=== PATIENT | female | born 1980 | race Caucasian/White ===

== ENCOUNTER 2024-06-22 14:40 | Outpatient (AMB) | payer BC, SELFPAY ==
[2024-06-22 14:41] VITALS: BP 112/74; PULSE 78; O2SAT 96; BMI 30.2
--- NOTE | 2024-06-22 14:41 | A.OFFVIS_ITS ---
Vital Signs 3 06/22/24 14:41 Height 5 ft 9 in Weight 204 lb 9.423 oz BMI 30.2 BP 112/74 Blood Pressure Location Lt brachial Position Sitting Pulse 78 Pulse Source Pulse Oximeter Pulse Oximetry (%) 96 Oxygen Delivery Method Room Air Intake Visit Reasons: Hyperthyroidism, thyroid nodules Intake Note: New patient present today for Hyperthyroidism and thyroid nodules. 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 Labs from November 2023 showed TSH was low at 0.25, normal free T4 of 1.22. Labs repeated 01/06/2024 again showed low TSH of 0.23. 01/04/2024: Ultrasound of the thyroid, I do not have the images available to me but the report shows a right mid lobe 2 cm solid, hypoechoic nodule TR 4 category that met criteria for FNA, a right inferior 1.2 cm solid, hypoechoic TR 4 category nodule and another right inferior 1 cm solid hypoechoic TR 4 category nodule. 02/01/2024: Status post FNA of the right mid lobe 2 cm nodule, I do not have the cytology results available to me but per patient this was benign. Preceding viral illness: none Osteoporosis/fracture: none CAD: none Contrast exposure: none Patient currently denies heat or cold intolerance, diarrhea or constipation, hair loss, palpitation, anxiety, weight changes, mood changes, , changes in appearance of eyes or vision changes, tremors, increased diaphoresis or dry skin. ? Reports low energy reports weight gain 25 lbs in 3 years walks 4 times 45 mins Patient denies any difficulty swallowing, pain on swallowing or voice changes or difficulty breathing. Has some anterior neck fullness on laying supine. Patient denies any history of childhood neck radiation. Denies having ever used lithium, amiodarone or biotin supplements. Patient denies any family history of thyroid cancer . Paternal grandmother: thyroid disease director of [employer] at [employer] No smoking Alcohol: 1 every other week No drug use Past medical history None Past surgical Perineal abscess incision and drainage Physical exam General: sitting comfortably in no acute distress HEENT: normocephalic/atraumatic, EOM intact, moist oral mucosa Neck: supple, prominent enlarged thyroid, palpable 1 cm right-sided nodule Cardiac: normal heart sounds Pulm: normal breath sounds B/L, no added breath sounds Abd: not distended, no tenderness Extremities: no edema, no signs of myxedema, mild right hand tremor noted initially which disappeared Neuro: AAO x3, Speech: normal, no facial droop, moving all 4 extremities Skin: no rash PFSH Medical History (Updated 06/22/24 @ 15:03 by Cortney Green MD) Multinodular goiter Subclinical hyperthyroidism Family History (Updated 06/22/24 @ 14:46 by CLIFTON Burgos) Mother Cancer Father Heart disease Diabetes Social History Alcohol intake: current Alcohol intake frequency: holidays/special occasions only Patient Tobacco Use Status: Never used Tobacco Assessment & Plan Assessment & Plan (1) Subclinical hyperthyroidism: Code(s): E05.90 - Thyrotoxicosis, unspecified without thyrotoxic crisis or storm Category: Medical Plan: 43-year-old female coming in today for initial evaluation of subclinical hyperthyroidism and multiple thyroid nodules. Labs from November and December 2023 showed TSH was low in the range of 0.23- 0.25 with normal free T4. She does not have any symptoms of hyperthyroidism, no preceding viral illness, no contrast exposure. Vitals are normal. She also had an ultrasound of the thyroid in December 2023 which showed multiple right-sided thyroid nodules with a right mid lobe 2 cm TR 4 category nodule that was biopsied in January 2024 at [facility], I do not have the cytology results but per patient results were benign. We will obtain these records. Given TSH is not less than 0.1, her age, no history of CAD/arrhythmias, no history of osteoporosis or fragility fracture, and no overt symptoms, she does not need treatment. We will continue to monitor her thyroid function. At this point it has been about 6 months since the last time it was checked, we will repeat extended thyroid panel today, we will also check for antibodies. Differentials could include underlying Graves disease/autoimmune thyroid disease, toxic adenoma or toxic multinodular goiter. If it comes down to her needing a repeat thyroid biopsy due to growth in the size of any of her nodules, I would obtain a thyroid uptake and scan to see if these are hot nodules as those usually do not harbor thyroid cancer unless they appear to suspicious, and biopsy could potentially be deferred. She does not have any compressive symptoms. No hypo or hyperthyroid symptoms. Plan: -ordered TSH, free T4, total T3, TSI, TSH receptor and TPO antibodies -ordered ultrasound of the thyroid to be done in 1 year from the last 1 in December 2024 -follow up in January 2025 to discuss ultrasound results -obtain thyroid FNA records from [facility] (2) Multinodular goiter: Code(s): E04.2 - Nontoxic multinodular goiter Category: Medical Plan: See above Plan I spent 45 minutes in reviewing the record, seeing the patient and documenting in the medical record. Orders: Orders 2 Thyroid Stimulating Hormone Today E05.90 - Thyrotoxicosis, unspecified without thyrotoxic crisis or storm Free T4 (Free Thyroxine) Today E05.90 - Thyrotoxicosis, unspecified without thyrotoxic crisis or storm Triiodothyronine T3 Total Today E05.90 - Thyrotoxicosis, unspecified without thyrotoxic crisis or storm Thyroid Stimulating Immunoglob Today E05.90 - Thyrotoxicosis, unspecified without thyrotoxic crisis or storm US thyroid 12/11/24 E04.2 - Nontoxic multinodular goiter Thyrotropin Receptor Antibody Today E05.90 - Thyrotoxicosis, unspecified without thyrotoxic crisis or storm Thyroid Peroxidase Antibodies Today E05.90 - Thyrotoxicosis, unspecified without thyrotoxic crisis or storm Patient Instructions: Do blood work today Do US of thyroid in December 2024 and follow up in January 2025 to discuss results Coding Level of Care Code New Pt Level 4 (01583) Diagnoses Subclinical hyperthyroidism E05.90 Multinodular goiter E04.2 Time Spent (min) 45
--- OUTSIDE RECORDS SUMMARY | 2024-06-22 17:36 | XMS_ITS ---
Author Organization [facility] Address [address] [place] [address] Care Team Providers Care Plug Machine Operator Name Role Phone THU GRAYSON Primary Care Provider VIOLETA Arrington Unavailable [phone] REASON FOR VISIT wt mn Encounters Encounter Location Date Provider Diagnosis [facility] [address] [place] [address] 06/02/2024 VIOLETA KENYON PLAN OF TREATMENT Next Appt Details Provider Name:VIOLETA Gordon, 06/23/2024 08:00:00 AM, [address] [facility] [address] [place], [address], Progress Notes * Les ALVAREZ:1980 (43 yo F)Acc No.[id number]:06/02/2024 Patient:??John ALVAREZa :1980?Age:43 Y?Sex:Fe male Address:[address] [place] [address] [place] [id number] * true * Date:??
--- OUTSIDE RECORDS SUMMARY | 2024-06-22 17:36 | XMS_ITS | Patient Health Record ---
Author Organization [facility] Address [address] [place] [address] Care Team Providers Care Curb Setter Name Role Phone THU GRAYSON Primary Care Provider VIOLETA Arrington Unavailable [phone] ALLERGIES No Known Allergies REASON FOR REFERRAL Diagnosis 1 Other general sympto ms and signs (R68.89) Referred Organization [facility] [address] Referred Provider JB TURNER Referred Address [address] [facility],[address] ,[place], [place],[address], Referred Provider Specialty Weight Manag ement Referral Priority Routine Encounters Encounter Location Date Provider Diagnosis [facility] [address] [place] [address] 06/02/2024 VIOLETA KENYON PLAN OF TREATMENT Next Appt Details Provider Name:VIOLETA Gordon, 06/23/2024 08:00:00 AM, [address] [facility], [address], [place], [address], Insurance Providers Payer Name Payer Address Payer Phone Subscriber Number Group Number Insured Name Patient Relationship to Insured Coverage Start Date Coverage End Date [facility] [address] [place] [address] [id number] ANTONIO Tim Self - patient is the insured MEDICAL (GENERAL) HISTORY Medical History History ICD Code weight gain/loss
== END 2024-06-22 15:09 | disposition home or self-care (01) ==
LOC: HO.ENCR 14:41
PROVIDERS: PCP Internal Medicine; Visit Provider Student in an Organized Health Care Education/Training Program
DX: E05.90 Thyrotoxicosis, unspecified without thyrotoxic crisis or storm (principal); E04.2 Nontoxic multinodular goiter
CPT/HCPCS: 99204

== ENCOUNTER 2024-06-22 14:40 | Outpatient (REF) | payer BC, SELFPAY ==
[2024-06-22 16:42] LABS: Free T4 (Free Thyroxine) 1.03 ng/dL (0.71-1.85); Thyroid Stimulating Hormone 0.22 uIU/mL (0.32-4.0)
[2024-06-23 04:33] LABS: Triiodothyronine T3 Total 125 ng/dL (76-181)
[2024-06-26 19:07] LABS: Thyroid Peroxidase Antibodies 1 IU/mL (<9)
[2024-06-26 20:22] LABS: Thyrotropin Receptor Antibody <1.00 IU/L (<=2.00)
[2024-06-27 16:13] LABS: Thyroid Stimulating Immunoglob <89 % baseline (<140)
== END 2024-06-22 14:41 | disposition home or self-care (01) ==
LOC: HO.LAB 14:40
PROVIDERS: PCP Internal Medicine; Visit Provider Student in an Organized Health Care Education/Training Program
DX: E05.90 Thyrotoxicosis, unspecified without thyrotoxic crisis or storm (principal)
CPT/HCPCS: 36415; 83520; 84439; 84443; 84445; 84480; 86376

== ENCOUNTER 2024-12-27 14:55 | Outpatient (REF) | payer BC, SELFPAY ==
--- NOTE | ~2024-12-27 | US_ITS ---
EXAMINATION: US THYROID CLINICAL INFORMATION: Goiter COMPARISON: None available. TECHNIQUE: Linear transducer grayscale and color Doppler examination with attention to the region of the thyroid. FINDINGS: SIZE: Measurements of the thyroid lobes and nodules are given in sagittal, anteroposterior and transverse dimensions respectively. Right Thyroid Lobe: 5.9 x 2.3 x 2.5 cm, volume 17.8 mL. Parenchyma: The gland echotexture is heterogeneous. Thyroid vascularity is normal. Left Thyroid Lobe: 5.1 x 1.9 x 1.7 cm, volume 8.7 mL. Parenchyma: The gland echotexture is heterogeneous. Thyroid vascularity is normal. Isthmus: 0.3 cm in maximum AP dimension. Estimated total number of nodules greater than or equal to 1 cm: 3. Insurance Advisor nodules are described as follows: 1. Location: Midportion right lobe. Size: 1.8 x 0.8 x 1.7 cm, volume 1.3 mL. Nodule characteristics: Composition: Solid (2). Echogenicity: Isoechoic (1). Shape: Not taller than wide (0). Margins: Smooth (0). Echogenic Foci: None (0). ACR TI-RADS total points: 3 ACR TI-RADS category: 3 2. Location: Lower pole right lobe. Size: 1.3 x 0.8 x 1.2 cm, volume 0.68 mL. Nodule characteristics: Composition: Solid/almost completely solid (2). Echogenicity: Undetermined 1. Shape: Not taller than wide (0). Margins: Smooth (0). Echogenic Foci: None (0). ACR TI-RADS total points: 3 ACR TI-RADS category: 3 3. Location: Lower pole right lobe. Size: 1.0 x 0.8 x 0.9 cm, volume 0.36 mL. Nodule characteristics: Composition: Solid (2). Echogenicity: Isoechoic (1). Shape: Not taller than wide (0). Margins: Smooth (0). Echogenic Foci: None (0). ACR TI-RADS total points: 3 ACR TI-RADS category: 3 4. Location: Upper pole, left lobe. Size: 0.4 x 0.2 x 0.2 cm, volume 0.01 mL. Nodule characteristics: Composition: Solid (2). Echogenicity: Isoechoic (1). Shape: Not taller than wide (0). Margins: Smooth (0). Echogenic Foci: None (0). ACR TI-RADS total points: 3 ACR TI-RADS category: 3 NODES: No lymphadenopathy is seen in the tissue surrounding the thyroid gland. US/US thyroid IMPRESSION: ACR TI-RADS category: 3 ACR TI-RADS RECOMMENDATION REFERENCE: Ultrasound-guided fine-needle aspiration, followup ultrasound, no further follow up. * TR1 (0 point) and TR2 (2 points): No FNA or follow up. * TR3 (3 points): FNA if more than or equal to 2.5 cm in maximum dimension, followup ultrasound in 1, 3 and 5 years if 1.5 to 2.4 cm in maximum dimension. * TR4 (4-6 points): FNA if more than or equal to 1.5 cm in maximum dimension, followup ultrasound in 1, 2, 3 and 5 years if 1 to 1.4 cm in maximum dimension. * TR5 (more than or equal to 7 points): FNA if more than or equal to 1 cm in maximum dimension, followup ultrasound every year for 5 years if 0.5 to 0.9 cm in maximum dimension. * TR3, TR4 or TR5 nodules that are below the size threshold for followup receive no follow up. Electronically signed by: Wilner Cunningham MD 12/27/2024 04:03 PM EDT
--- OUTSIDE RECORDS SUMMARY | 2024-12-27 21:09 | XMS_ITS | Patient Health Record ---
Author Organization [facility] Address [address] [place] [address] Care Team Providers Care Food Mixer Name Role Phone Cesario Adamson MD Primary Care Provider Un available Sofia Josue Unavailable [phone] Reason For Referral No Information Problems Problem Type SNOMED Code ICD Code Onset Dates Problem Status W/U Status Risk Notes Problem Onychomycosis (790854986) Onychomycosis (110.1) Active confirmed Problem Pain in limb (72024694) Pain in Limb (729.5) Active confirmed Problem Hallux valgus (213030165) Hallux Valgus (735.0) Active confirmed Problem Hammer toe (294760507) Hammer toe (735.4) Active confirmed Plan Of Treatment No Information Insurance Providers Payer Name Payer Address Payer Phone Subscriber Number Group Number Insured Name Patient Relationship to Insured Coverage Start Date Coverage End Date [facility] [address] [place] [address] [id number] Tim Vigil Self - patient is the insured
--- OUTSIDE RECORDS SUMMARY | 2024-12-27 21:09 | XMS_ITS | Patient Health Record ---
Author Organization [facility] [address] Address [address] [place] [address] Care Team Providers Care Space Technologist Name Role Phone THU GRAYSON Primary Care Provider VIOLETA Arrington Unavailable [phone] Allergies No Known Allergies Reason For Referral Diagnosis 1 Other general sympto ms and signs (R68.89) Referred Organization [facility] [address] Referred Provider JB TURNER Referred Address [address] [facility] [address] ,[place], [place],[address], Referred Provider Specialty Weight Manag ement Referral Priority Routine Medications Medication SIG (Take, Route, Fr equency, Duration) Notes Start Date End Date Status Zepbound 5 MG/0.5ML Inject 5mg Subcutane ous once weekly; Duration: 30 days Active Mirena (52 MG) Activ e Problems Problem Type SNOMED Code ICD Code Onset Dates Problem Status W/U Status Risk Notes Problem Overweight (659315289) Overweight (E66.3) Active confirmed Problem Body mass index 25-29 - overweight (594197878) BMI 28.0-28.9,adult (Z68.28) Active confirmed Problem Thyroid dysfunction (028168821) Thyroid dysfunction (E07.9) Active confirmed Vital Signs Heart Rate 81 /min 11/24/2024 Oximetry 98 % 11/24/2024 Blood pressure diastolic 84 mm Hg 11/24/2024 Height 68 in 11/24/2024 Blood pressure systolic 128 mm Hg 11/24/2024 Weight 155.4 lbs 11/24/2024 BMI 23.63 kg/m2 11/24/2024 Encounters Encounter Location Date Provider Diagnosis [facility] [address] [facility] [address] [place] [address] 06/23/2024 VIOLETA KENYON Obesity (BMI 30.0-34.9) E66.811 ; BMI 30.0-30.9,adult Z68.30 ; Thyroid dysfunction E07.9 and Nutritional counseling Z71.[address] [facility] [address] [facility] [address] [place] [address] 07/20/2024 VIOLETA JANSEN Overweight E66.3 ; B ME 28.0-28.9,adult Z68.28 ; Thyroid dysfunction E07.9 ; Nutritional counseling Z71.3 and Encounter for examination of blood pressure without abnormal findings Z01.30 [facility] [address] [facility] [address] [place] [address] 09/06/2024 VIOLETA JANSEN Overweight E66.3 ; B ME 25.0-25.9,adult Z68.25 ; Thyroid dysfunction E07.9 ; Nutritional counseling Z71.3 and Encounter for examination of blood pressure without abnormal findings Z01.30 [facility] [address] [address] 10/11/2024 VIOLETA JANSEN Overweight E66.3 ; B ME 24.0-24.9, adult Z68.24 ; Thyroid dysfunction E07.9 ; Nutritional counseling Z71.3 and Encounter for examination of blood pressure without abnormal findings Z01.30 [facility] [address] [facility] [address] [place] [address] 11/24/2024 VIOLETA JANSEN Overweight E66.3 ; B ME 23.0-23.9, adult Z68.23 ; Thyroid dysfunction E07.9 ; Nutritional counseling Z71.3 and Encounter for examination of blood pressure without abnormal findings Z01.[address] [facility] [address] [place] [address] 06/02/2024 VIOLETA JANSEN [facility] [address] [facility] [address] [place] [address] 06/23/2024 VIOLETA JANSEN [facility] [address] [facility] [address] [place] [address] 07/04/2024 VIOLETA JANSEN [facility] [address] [facility] [address] [place] [address] 07/04/2024 VIOLETA JANSEN [facility] [address] [facility] [address] [place] [address] 07/12/2024 VIOLETA KENYON [facility] [address] [place] [address] 07/18/2024 VIOLETA KENYON Assessments Encounter Date Diagnosis (ICD Code) Assessment Notes Treatment Notes Treatment Clinical Notes Section Notes 10/11/2024 Overweight (ICD-10 - E66.3) Tim is a 44-year-old female with a PMH of thyroid dysfunction that presents for weight management follow up. Reviewed [facility] holistic and medical approach to weight loss with emphasis on lifestyle modification. 10/11/2024: Weight: 162.7, BMI: 24.7 (-4lbs). SECA reviewed, reveals primarily fat loss. Patient congratulated on continued progress. She is encouraged to continue making health-conscious diet choices and prioritizing protein intake. Discussed importance of maintaining active lifestyle and hydrating adequately. She will continue Zepbound 5 mg SC every 10 days and follow-up in 6 weeks. 09/06/2024: Weight: 166.9, BMI: 25.4. (-21lbs) 07/20/2024: Weight: 187, BMI: 28.5. (-16lbs) 06/23/2024: Weight: 203.3, BMI: 30.9. All questions answered to the patient's satisfaction. Patient demonstrates understanding of diagnosis and treatments discussed. Follow-up in 4 weeks, sooner should any questions/concerns arise. Case discussed with collaborating physician Ssui Green who has reviewed the assessment/plan. Chart, medications, labs, and vital signs reviewed. Dictation completed with the use of Q-Bot voice recognition software, prone to medical misidentifications and grammatical errors. All errors are unintentional. Although the practitioner does try to identify and correct errors, some may be present. Please do not hesitate to contact the practitioner for clarification. Total time was 30 minutes spent with >50% on coordination of care and patient education. 10/11/2024 BMI 24.0-24.9, adult (ICD-10 - Z68.24) Tim is a 44-year-old female with a PMH of thyroid dysfunction that presents for weight management follow up. Reviewed [facility] holistic and medical approach to weight loss with emphasis on lifestyle modification. 10/11/2024: Weight: 162.7, BMI: 24.7 (-4lbs). SECA reviewed, reveals primarily fat loss. Patient congratulated on continued progress. She is encouraged to continue making health-conscious diet choices and prioritizing protein intake. Discussed importance of maintaining active lifestyle and hydrating adequately. She will continue Zepbound 5 mg SC every 10 days and follow-up in 6 weeks. 09/06/2024: Weight: 166.9, BMI: 25.4. (-21lbs) 07/20/2024: Weight: 187, BMI: 28.5. (-16lbs) 06/23/2024: Weight: 203.3, BMI: 30.9. All questions answered to the patient's satisfaction. Patient demonstrates understanding of diagnosis and treatments discussed. Follow-up in 4 weeks, sooner should any questions/concerns arise. Case discussed with collaborating physician Susi Green who has reviewed the assessment/plan. Chart, medications, labs, and vital signs reviewed. Dictation completed with the use of Q-Bot voice recognition software, prone to medical misidentifications and grammatical errors. All errors are unintentional. Although the practitioner does try to identify and correct errors, some may be present. Please do not hesitate to contact the practitioner for clarification. Total time was 30 minutes spent with >50% on coordination of care and patient education. 11/24/2024 Overweight (ICD-10 - E66.3) Tim is a 44-year-old female with a PMH of thyroid dysfunction that presents for weight management follow up. Reviewed [facility] holistic and medical approach to weight loss with emphasis on lifestyle modification. 11/24/2024: Weight: 155.4, BMI: 23.6 (-7lbs) SECA reviewed, reveals primarily fat loss with minimal muscle mass loss. Patient encouraged to continue making health-conscious diet choices and prioritizing protein intake. Discussed importance of active lifestyle and adequate hydration. Plan to continue Zepbound 5 mg SC every 10 days. Consider transition to maintenance dosing at time of next follow-up. 10/11/2024: Weight: 162.7, BMI: 24.7 (-4lbs). 09/06/2024: Weight: 166.9, BMI: 25.4. (-21lbs) 07/20/2024: Weight: 187, BMI: 28.5. (-16lbs) 06/23/2024: Weight: 203.3, BMI: 30.9. All questions answered to the patient's satisfaction. Patient demonstrates understanding of diagnosis and treatments discussed. Follow-up in 4 weeks, sooner should any questions/concerns arise. Case discussed with collaborating physician Susi Green who has reviewed the assessment/plan. Chart, medications, labs, and vital signs reviewed. Dictation completed with the use of Q-Bot voice recognition software, prone to medical misidentifications and grammatical errors. All errors are unintentional. Although the practitioner does try to identify and correct errors, some may be present. Please do not hesitate to contact the practitioner for clarification. Total time was 30 minutes spent with >50% on coordination of care and patient education. 11/24/2024 BMI 23.0-23.9, adult (ICD-10 - Z68.23) Tim is a 44-year-old female with a PMH of thyroid dysfunction that presents for weight management follow up. Reviewed [facility] holistic and medical approach to weight loss with emphasis on lifestyle modification. 11/24/2024: Weight: 155.4, BMI: 23.6 (-7lbs) SECA reviewed, reveals primarily fat loss with minimal muscle mass loss. Patient encouraged to continue making health-conscious diet choices and prioritizing protein intake. Discussed importance of active lifestyle and adequate hydration. Plan to continue Zepbound 5 mg SC every 10 days. Consider transition to maintenance dosing at time of next follow-up. 10/11/2024: Weight: 162.7, BMI: 24.7 (-4lbs). 09/06/2024: Weight: 166.9, BMI: 25.4. (-21lbs) 07/20/2024: Weight: 187, BMI: 28.5. (-16lbs) 06/23/2024: Weight: 203.3, BMI: 30.9. All questions answered to the patient's satisfaction. Patient demonstrates understanding of diagnosis and treatments discussed. Follow-up in 4 weeks, sooner should any questions/concerns arise. Case discussed with collaborating physician Susi Green who has reviewed the assessment/plan. Chart, medications, labs, and vital signs reviewed. Dictation completed with the use of Q-Bot voice recognition software, prone to medical misidentifications and grammatical errors. All errors are unintentional. Although the practitioner does try to identify and correct errors, some may be present. Please do not hesitate to contact the practitioner for clarification. Total time was 30 minutes spent with >50% on coordination of care and patient education. 09/06/2024 Overweight (ICD-10 - E66.3) Tim is a 44-year-old female with a PMH of thyroid dysfunction that presents for weight management follow up. Reviewed [facility] holistic and medical approach to weight loss with emphasis on lifestyle modification. 09/06/2024: Weight: 166.9, BMI: 25.4.(-21lbs) SECA reviewed, reveals 18 pounds of fat loss and 2 pounds of muscle mass loss. Patient averaging 3.4 pounds of weight loss/week. Discussed importance of continued prioritization of protein intake, adequate hydration, and regular physical activity. Patient will continue Zepbound 5 mg every 10-14 days and follow-up in 1 month. 07/20/2024: Weight: 187, BMI: 28.5. (-16lbs) 06/23/2024: Weight: 203.3, BMI: 30.9. All questions answered to the patient's satisfaction. Patient demonstrates understanding of diagnosis and treatments discussed. Follow-up in 4 weeks, sooner should any questions/concerns arise. Case discussed with collaborating physician Susi Green who has reviewed the assessment/plan. Chart, medications, labs, and vital signs reviewed. Dictation completed with the use of Q-Bot voice recognition software, prone to medical misidentifications and grammatical errors. All errors are unintentional. Although the practitioner does try to identify and correct errors, some may be present. Please do not hesitate to contact the practitioner for clarification. Total time was 30 minutes spent with >50% on coordination of care and patient education. 09/06/2024 BMI 25.0-25.9,adul t (ICD-10 - Z68.25) Tim is a 44-year-old female with a PMH of thyroid dysfunction that presents for weight management follow up. Reviewed [facility] holistic and medical approach to weight loss with emphasis on lifestyle modification. 09/06/2024: Weight: 166.9, BMI: 25.4.(-21lbs) SECA reviewed, reveals 18 pounds of fat loss and 2 pounds of muscle mass loss. Patient averaging 3.4 pounds of weight loss/week. Discussed importance of continued prioritization of protein intake, adequate hydration, and regular physical activity. Patient will continue Zepbound 5 mg every 10-14 days and follow-up in 1 month. 07/20/2024: Weight: 187, BMI: 28.5. (-16lbs) 06/23/2024: Weight: 203.3, BMI: 30.9. All questions answered to the patient's satisfaction. Patient demonstrates understanding of diagnosis and treatments discussed. Follow-up in 4 weeks, sooner should any questions/concerns arise. Case discussed with collaborating physician Susi Green who has reviewed the assessment/plan. Chart, medications, labs, and vital signs reviewed. Dictation completed with the use of Q-Bot voice recognition software, prone to medical misidentifications and grammatical errors. All errors are unintentional. Although the practitioner does try to identify and correct errors, some may be present. Please do not hesitate to contact the practitioner for clarification. Total time was 30 minutes spent with >50% on coordination of care and patient education. 06/23/2024 BMI 30.0-30.9,adul t (ICD-10 - Z68.30) Tim is a 43-year-old female with a PMH of thyroid dysfunction that presents for weight management consult. Patient was reassured and welcomed to the practice. Discussed [facility] holistic and medical approach to weight loss with emphasis on lifestyle modification. Patient is educated that a healthy lifestyle aids in combating obesity as well as reducing the risk of developing obesity-related medical complications including but not limited to diabetes and cardiovascular disease. Detailed education provided about taking steps to initiate sustainable lifestyle changes including incorporating regular physical activity, making healthy diet choices, and prioritizing mental health. Information provided about literature including The Food Rules by Rg Gleason and Eat Fat Get Lean by Dr Santhosh Luo. Handouts including lifestyle checklist, protein content of food, low calorie snacks, and cholesterol information sheet provided. Diagnostic testing/ SECA scale offered. Discussed the importance of regular SECA scale measurements to ensure healthy weight loss. 06/23/2024: Weight: 203.3, BMI: 30.9. Reviewed SECA/goals for implementing sustainable lifestyle changes. Patient is encouraged to increase physical activity, goal 8-10k steps/day. Also discussed the importance of strength training with proper safety/body mechanics for maintenance of muscle mass/bone health. Patient encouraged to drink 60-80oz water/day. Reviewed nutrition, recommending food diary x 1 week to ensure adequate caloric/protein intake. Goal of 80-100g protein/day. Reviewed risks, benefits, and side effects of weight management medications including phentermine, Topamax, Contrave, metformin, and GLP-1 agonist. Patient interested in GLP-1/GIP agonist Zepbound. Denies personal/family history of medullary thyroid cancer/M EN syndrome. Rx for Zepbound 2.5 mg SC weekly sent to pharmacy. Reviewed proper use/administration, and expectations for PA process/insurance coverage. After consultation and careful review of medical history, this patient would benefit from Zepbound based off of the following criteria met: Patient is over the age of 18 with a BMI of 30. Patient has trialed other methods of weight loss including improving diet and exercise without success. This medication is prescribed by or in consultation with a board-certified obesity and weight management physician (Dr. Bk Green or Dr. Alvarado Green). All questions answered to the patient's satisfaction. Patient demonstrates understanding of diagnosis and treatments discussed. Follow-up in 4 weeks, sooner should any questions/concerns arise. Case discussed with collaborating physician Susi Green who has reviewed the assessment/plan. Chart, medications, labs, and vital signs reviewed. Dictation completed with the use of Q-Bot voice recognition software, prone to medical misidentifications and grammatical errors. All errors are unintentional. Although the practitioner does try to identify and correct errors, some may be present. Please do not hesitate to contact the practitioner for clarification. Total time was 60 minutes spent with >50% on coordination of care and patient education. 06/23/2024 Obesity (BMI 30.0-34.9) (ICD-10 - E66.811) Tim is a 43-year-old female with a PMH of thyroid dysfunction that presents for weight management consult. Patient was reassured and welcomed to the practice. Discussed [facility] holistic and medical approach to weight loss with emphasis on lifestyle modification. Patient is educated that a healthy lifestyle aids in combating obesity as well as reducing the risk of developing obesity-related medical complications including but not limited to diabetes and cardiovascular disease. Detailed education provided about taking steps to initiate sustainable lifestyle changes including incorporating regular physical activity, making healthy diet choices, and prioritizing mental health. Information provided about literature including The Food Rules by Rg Gleason and Eat Fat Get Lean by Dr Santhosh Luo. Handouts including lifestyle checklist, protein content of food, low calorie snacks, and cholesterol information sheet provided. Diagnostic testing/ SECA scale offered. Discussed the importance of regular SECA scale measurements to ensure healthy weight loss. 06/23/2024: Weight: 203.3, BMI: 30.9. Reviewed SECA/goals for implementing sustainable lifestyle changes. Patient is encouraged to increase physical activity, goal 8-10k steps/day. Also discussed the importance of strength training with proper safety/body mechanics for maintenance of muscle mass/bone health. Patient encouraged to drink 60-80oz water/day. Reviewed nutrition, recommending food diary x 1 week to ensure adequate caloric/protein intake. Goal of 80-100g protein/day. Reviewed risks, benefits, and side effects of weight management medications including phentermine, Topamax, Contrave, metformin, and GLP-1 agonist. Patient interested in GLP-1/GIP agonist Zepbound. Denies personal/family history of medullary thyroid cancer/M EN syndrome. Rx for Zepbound 2.5 mg SC weekly sent to pharmacy. Reviewed proper use/administration, and expectations for PA process/insurance coverage. After consultation and careful review of medical history, this patient would benefit from Zepbound based off of the following criteria met: Patient is over the age of 20 with a BMI of 30. Patient has trialed other methods of weight loss including improving diet and exercise without success. This medication is prescribed by or in consultation with a board-certified obesity and weight management physician (Dr. Bk Green or Dr. Alvarado Green). All questions answered to the patient's satisfaction. Patient demonstrates understanding of diagnosis and treatments discussed. Follow-up in 4 weeks, sooner should any questions/concerns arise. Case discussed with collaborating physician Susi Green who has reviewed the assessment/plan. Chart, medications, labs, and vital signs reviewed. Dictation completed with the use of Q-Bot voice recognition software, prone to medical misidentifications and grammatical errors. All errors are unintentional. Although the practitioner does try to identify and correct errors, some may be present. Please do not hesitate to contact the practitioner for clarification. Total time was 60 minutes spent with >50% on coordination of care and patient education. 07/20/2024 Overweight (ICD-10 - E66.3) Tim is a 44-year-old female with a PMH of thyroid dysfunction that presents for weight management follow up. Reviewed [facility] holistic and medical approach to weight loss with emphasis on lifestyle modification. 07/20/2024: Weight: 187, BMI: 28.5. Patient down 16 pounds. SECA reviewed, reveals 12 pounds of fat loss and 1 pound muscle mass loss. Patient congratulated on progress. She is encouraged to continue making health-conscious diet to assist with prioritization of protein intake. She is also encouraged to continue hydrating adequately and exercising regularly. Discussed goal of adding strength training 2-3 times weekly. Patient will complete 8 weeks of Zepbound 2.5 mg SC weekly with plan to then increase to 5 mg SC weekly. Follow-up in 6 weeks. 06/23/2024: Weight: 203.3, BMI: 30.9. Reviewed SECA/goals for implementing sustainable lifestyle changes. Patient is encouraged to increase physical activity, goal 8-10k steps/day. Also discussed the importance of strength training with proper safety/body mechanics for maintenance of muscle mass/bone health. Patient encouraged to drink 60-80oz water/day. Reviewed nutrition, recommending food diary x 1 week to ensure adequate caloric/protein intake. Goal of 80-100g protein/day. Reviewed risks, benefits, and side effects of weight management medications including phentermine, Topamax, Contrave, metformin, and GLP-1 agonist. Patient interested in GLP-1/GIP agonist Zepbound. Denies personal/family history of medullary thyroid cancer/M EN syndrome. Rx for Zepbound 2.5 mg SC weekly sent to pharmacy. Reviewed proper use/administration, and expectations for PA process/insurance coverage. All questions answered to the patient's satisfaction. Patient demonstrates understanding of diagnosis and treatments discussed. Follow-up in 4 weeks, sooner should any questions/concerns arise. Case discussed with collaborating physician Susi Green who has reviewed the assessment/plan. Chart, medications, labs, and vital signs reviewed. Dictation completed with the use of Q-Bot voice recognition software, prone to medical misidentifications and grammatical errors. All errors are unintentional. Although the practitioner does try to identify and correct errors, some may be present. Please do not hesitate to contact the practitioner for clarification. Total time was 30 minutes spent with >50% on coordination of care and patient education. 07/20/2024 BMI 28.0-28.9,adul t (ICD-10 - Z68.28) Tim is a 44-year-old female with a PMH of thyroid dysfunction that presents for weight management follow up. Reviewed [facility] holistic and medical approach to weight loss with emphasis on lifestyle modification. 07/20/2024: Weight: 187, BMI: 28.5. Patient down 16 pounds. SECA reviewed, reveals 12 pounds of fat loss and 1 pound muscle mass loss. Patient congratulated on progress. She is encouraged to continue making health-conscious diet to assist with prioritization of protein intake. She is also encouraged to continue hydrating adequately and exercising regularly. Discussed goal of adding strength training 2-3 times weekly. Patient will complete 8 weeks of Zepbound 2.5 mg SC weekly with plan to then increase to 5 mg SC weekly. Follow-up in 6 weeks. 06/23/2024: Weight: 203.3, BMI: 30.9. Reviewed SECA/goals for implementing sustainable lifestyle changes. Patient is encouraged to increase physical activity, goal 8-10k steps/day. Also discussed the importance of strength training with proper safety/body mechanics for maintenance of muscle mass/bone health. Patient encouraged to drink 60-80oz water/day. Reviewed nutrition, recommending food diary x 1 week to ensure adequate caloric/protein intake. Goal of 80-100g protein/day. Reviewed risks, benefits, and side effects of weight management medications including phentermine, Topamax, Contrave, metformin, and GLP-1 agonist. Patient interested in GLP-1/GIP agonist Zepbound. Denies personal/family history of medullary thyroid cancer/M EN syndrome. Rx for Zepbound 2.5 mg SC weekly sent to pharmacy. Reviewed proper use/administration, and expectations for PA process/insurance coverage. All questions answered to the patient's satisfaction. Patient demonstrates understanding of diagnosis and treatments discussed. Follow-up in 4 weeks, sooner should any questions/concerns arise. Case discussed with collaborating physician Susi Green who has reviewed the assessment/plan. Chart, medications, labs, and vital signs reviewed. Dictation completed with the use of [employer] voice recognition software, prone to medical misidentifications and grammatical errors. All errors are unintentional. Although the practitioner does try to identify and correct errors, some may be present. Please do not hesitate to contact the practitioner for clarification. Total time was 30 minutes spent with >50% on coordination of care and patient education. 09/06/2024 Thyroid dysfunction (ICD-10 - E07.9) Tim is a 44-year-old female with a PMH of thyroid dysfunction that presents for weight management follow up. Reviewed [facility] holistic and medical approach to weight loss with emphasis on lifestyle modification. 09/06/2024: Weight: 166.9, BMI: 25.4.(-21lbs) SECA reviewed, reveals 18 pounds of fat loss and 2 pounds of muscle mass loss. Patient averaging 3.4 pounds of weight loss/week. Discussed importance of continued prioritization of protein intake, adequate hydration, and regular physical activity. Patient will continue Zepbound 5 mg every 10-14 days and follow-up in 1 month. 07/20/2024: Weight: 187, BMI: 28.5. (-16lbs) 06/23/2024: Weight: 203.3, BMI: 30.9. All questions answered to the patient's satisfaction. Patient demonstrates understanding of diagnosis and treatments discussed. Follow-up in 4 weeks, sooner should any questions/concerns arise. Case discussed with collaborating physician Susi Green who has reviewed the assessment/plan. Chart, medications, labs, and vital signs reviewed. Dictation completed with the use of Q-Bot voice recognition software, prone to medical misidentifications and grammatical errors. All errors are unintentional. Although the practitioner does try to identify and correct errors, some may be present. Please do not hesitate to contact the practitioner for clarification. Total time was 30 minutes spent with >50% on coordination of care and patient education. 07/20/2024 Thyroid dysfunction (ICD-10 - E07.9) Tim is a 44-year-old female with a PMH of thyroid dysfunction that presents for weight management follow up. Reviewed [facility] holistic and medical approach to weight loss with emphasis on lifestyle modification. 07/20/2024: Weight: 187, BMI: 28.5. Patient down 16 pounds. SECA reviewed, reveals 12 pounds of fat loss and 1 pound muscle mass loss. Patient congratulated on progress. She is encouraged to continue making health-conscious diet to assist with prioritization of protein intake. She is also encouraged to continue hydrating adequately and exercising regularly. Discussed goal of adding strength training 2-3 times weekly. Patient will complete 8 weeks of Zepbound 2.5 mg SC weekly with plan to then increase to 5 mg SC weekly. Follow-up in 6 weeks. 06/23/2024: Weight: 203.3, BMI: 30.9. Reviewed SECA/goals for implementing sustainable lifestyle changes. Patient is encouraged to increase physical activity, goal 8-10k steps/day. Also discussed the importance of strength training with proper safety/body mechanics for maintenance of muscle mass/bone health. Patient encouraged to drink 60-80oz water/day. Reviewed nutrition, recommending food diary x 1 week to ensure adequate caloric/protein intake. Goal of 80-100g protein/day. Reviewed risks, benefits, and side effects of weight management medications including phentermine, Topamax, Contrave, metformin, and GLP-1 agonist. Patient interested in GLP-1/GIP agonist Zepbound. Denies personal/family history of medullary thyroid cancer/M EN syndrome. Rx for Zepbound 2.5 mg SC weekly sent to pharmacy. Reviewed proper use/administration, and expectations for PA process/insurance coverage. All questions answered to the patient's satisfaction. Patient demonstrates understanding of diagnosis and treatments discussed. Follow-up in 4 weeks, sooner should any questions/concerns arise. Case discussed with collaborating physician Susi Green who has reviewed the assessment/plan. Chart, medications, labs, and vital signs reviewed. Dictation completed with the use of Q-Bot voice recognition software, prone to medical misidentifications and grammatical errors. All errors are unintentional. Although the practitioner does try to identify and correct errors, some may be present. Please do not hesitate to contact the practitioner for clarification. Total time was 30 minutes spent with >50% on coordination of care and patient education. 06/23/2024 Thyroid dysfunction (ICD-10 - E07.9) Tim is a 43-year-old female with a PMH of thyroid dysfunction that presents for weight management consult. Patient was reassured and welcomed to the practice. Discussed [facility] holistic and medical approach to weight loss with emphasis on lifestyle modification. Patient is educated that a healthy lifestyle aids in combating obesity as well as reducing the risk of developing obesity-related medical complications including but not limited to diabetes and cardiovascular disease. Detailed education provided about taking steps to initiate sustainable lifestyle changes including incorporating regular physical activity, making healthy diet choices, and prioritizing mental health. Information provided about literature including The Food Rules by Rg Gleason and Eat Fat Get Lean by Dr Santhosh Luo. Handouts including lifestyle checklist, protein content of food, low calorie snacks, and cholesterol information sheet provided. Diagnostic testing/ SECA scale offered. Discussed the importance of regular SECA scale measurements to ensure healthy weight loss. 06/23/2024: Weight: 203.3, BMI: 30.9. Reviewed SECA/goals for implementing sustainable lifestyle changes. Patient is encouraged to increase physical activity, goal 8-10k steps/day. Also discussed the importance of strength training with proper safety/body mechanics for maintenance of muscle mass/bone health. Patient encouraged to drink 60-80oz water/day. Reviewed nutrition, recommending food diary x 1 week to ensure adequate caloric/protein intake. Goal of 80-100g protein/day. Reviewed risks, benefits, and side effects of weight management medications including phentermine, Topamax, Contrave, metformin, and GLP-1 agonist. Patient interested in GLP-1/GIP agonist Zepbound. Denies personal/family history of medullary thyroid cancer/M EN syndrome. Rx for Zepbound 2.5 mg SC weekly sent to pharmacy. Reviewed proper use/administration, and expectations for PA process/insurance coverage. After consultation and careful review of medical history, this patient would benefit from Zepbound based off of the following criteria met: Patient is over the age of 18 with a BMI of 30. Patient has trialed other methods of weight loss including improving diet and exercise without success. This medication is prescribed by or in consultation with a board-certified obesity and weight management physician (Dr. Bk Green or Dr. Alvarado Green). All questions answered to the patient's satisfaction. Patient demonstrates understanding of diagnosis and treatments discussed. Follow-up in 4 weeks, sooner should any questions/concerns arise. Case discussed with collaborating physician Susi Green who has reviewed the assessment/plan. Chart, medications, labs, and vital signs reviewed. Dictation completed with the use of Dragon voice recognition software, prone to medical misidentifications and grammatical errors. All errors are unintentional. Although the practitioner does try to identify and correct errors, some may be present. Please do not hesitate to contact the practitioner for clarification. Total time was 60 minutes spent with >50% on coordination of care and patient education. 10/11/2024 Thyroid dysfunction (ICD-10 - E07.9) Tim is a 44-year-old female with a PMH of thyroid dysfunction that presents for weight management follow up. Reviewed [facility] holistic and medical approach to weight loss with emphasis on lifestyle modification. 10/11/2024: Weight: 162.7, BMI: 24.7 (-4lbs). SECA reviewed, reveals primarily fat loss. Patient congratulated on continued progress. She is encouraged to continue making health-conscious diet choices and prioritizing protein intake. Discussed importance of maintaining active lifestyle and hydrating adequately. She will continue Zepbound 5 mg SC every 10 days and follow-up in 6 weeks. 09/06/2024: Weight: 166.9, BMI: 25.4. (-21lbs) 07/20/2024: Weight: 187, BMI: 28.5. (-16lbs) 06/23/2024: Weight: 203.3, BMI: 30.9. All questions answered to the patient's satisfaction. Patient demonstrates understanding of diagnosis and treatments discussed. Follow-up in 4 weeks, sooner should any questions/concerns arise. Case discussed with collaborating physician Susi Green who has reviewed the assessment/plan. Chart, medications, labs, and vital signs reviewed. Dictation completed with the use of Q-Bot voice recognition software, prone to medical misidentifications and grammatical errors. All errors are unintentional. Although the practitioner does try to identify and correct errors, some may be present. Please do not hesitate to contact the practitioner for clarification. Total time was 30 minutes spent with >50% on coordination of care and patient education. 11/24/2024 Thyroid dysfunction (ICD-10 - E07.9) Tim is a 44-year-old female with a PMH of thyroid dysfunction that presents for weight management follow up. Reviewed [facility] holistic and medical approach to weight loss with emphasis on lifestyle modification. 11/24/2024: Weight: 155.4, BMI: 23.6 (-7lbs) SECA reviewed, reveals primarily fat loss with minimal muscle mass loss. Patient encouraged to continue making health-conscious diet choices and prioritizing protein intake. Discussed importance of active lifestyle and adequate hydration. Plan to continue Zepbound 5 mg SC every 10 days. Consider transition to maintenance dosing at time of next follow-up. 10/11/2024: Weight: 162.7, BMI: 24.7 (-4lbs). 09/06/2024: Weight: 166.9, BMI: 25.4. (-21lbs) 07/20/2024: Weight: 187, BMI: 28.5. (-16lbs) 06/23/2024: Weight: 203.3, BMI: 30.9. All questions answered to the patient's satisfaction. Patient demonstrates understanding of diagnosis and treatments discussed. Follow-up in 4 weeks, sooner should any questions/concerns arise. Case discussed with collaborating physician Susi Green who has reviewed the assessment/plan. Chart, medications, labs, and vital signs reviewed. Dictation completed with the use of Q-Bot voice recognition software, prone to medical misidentifications and grammatical errors. All errors are unintentional. Although the practitioner does try to identify and correct errors, some may be present. Please do not hesitate to contact the practitioner for clarification. Total time was 30 minutes spent with >50% on coordination of care and patient education. 06/23/2024 Nutritional counseling (ICD-10 - Z71.3) Tim is a 43-year-old female with a PMH of thyroid dysfunction that presents for weight management consult. Patient was reassured and welcomed to the practice. Discussed [facility] holistic and medical approach to weight loss with emphasis on lifestyle modification. Patient is educated that a healthy lifestyle aids in combating obesity as well as reducing the risk of developing obesity-related medical complications including but not limited to diabetes and cardiovascular disease. Detailed education provided about taking steps to initiate sustainable lifestyle changes including incorporating regular physical activity, making healthy diet choices, and prioritizing mental health. Information provided about literature including The Food Rules by Rg Gleason and Eat Fat Get Lean by Dr Santhosh Luo. Handouts including lifestyle checklist, protein content of food, low calorie snacks, and cholesterol information sheet provided. Diagnostic testing/ SECA scale offered. Discussed the importance of regular SECA scale measurements to ensure healthy weight loss. 06/23/2024: Weight: 203.3, BMI: 30.9. Reviewed SECA/goals for implementing sustainable lifestyle changes. Patient is encouraged to increase physical activity, goal 8-10k steps/day. Also discussed the importance of strength training with proper safety/body mechanics for maintenance of muscle mass/bone health. Patient encouraged to drink 60-80oz water/day. Reviewed nutrition, recommending food diary x 1 week to ensure adequate caloric/protein intake. Goal of 80-100g protein/day. Reviewed risks, benefits, and side effects of weight management medications including phentermine, Topamax, Contrave, metformin, and GLP-1 agonist. Patient interested in GLP-1/GIP agonist Zepbound. Denies personal/family history of medullary thyroid cancer/M EN syndrome. Rx for Zepbound 2.5 mg SC weekly sent to pharmacy. Reviewed proper use/administration, and expectations for PA process/insurance coverage. After consultation and careful review of medical history, this patient would benefit from Zepbound based off of the following criteria met: Patient is over the age of 18 with a BMI of 30. Patient has trialed other methods of weight loss including improving diet and exercise without success. This medication is prescribed by or in consultation with a board-certified obesity and weight management physician (Dr. Bk Green or Dr. Alvarado Green). All questions answered to the patient's satisfaction. Patient demonstrates understanding of diagnosis and treatments discussed. Follow-up in 4 weeks, sooner should any questions/concerns arise. Case discussed with collaborating physician Susi Green who has reviewed the assessment/plan. Chart, medications, labs, and vital signs reviewed. Dictation completed with the use of Q-Bot voice recognition software, prone to medical misidentifications and grammatical errors. All errors are unintentional. Although the practitioner does try to identify and correct errors, some may be present. Please do not hesitate to contact the practitioner for clarification. Total time was 60 minutes spent with >50% on coordination of care and patient education. 09/06/2024 Nutritional counseling (ICD-10 - Z71.3) Tim is a 44-year-old female with a PMH of thyroid dysfunction that presents for weight management follow up. Reviewed [facility] holistic and medical approach to weight loss with emphasis on lifestyle modification. 09/06/2024: Weight: 166.9, BMI: 25.4.(-21lbs) SECA reviewed, reveals 18 pounds of fat loss and 2 pounds of muscle mass loss. Patient averaging 3.4 pounds of weight loss/week. Discussed importance of continued prioritization of protein intake, adequate hydration, and regular physical activity. Patient will continue Zepbound 5 mg every 10-14 days and follow-up in 1 month. 07/20/2024: Weight: 187, BMI: 28.5. (-16lbs) 06/23/2024: Weight: 203.3, BMI: 30.9. All questions answered to the patient's satisfaction. Patient demonstrates understanding of diagnosis and treatments discussed. Follow-up in 4 weeks, sooner should any questions/concerns arise. Case discussed with collaborating physician Susi Green who has reviewed the assessment/plan. Chart, medications, labs, and vital signs reviewed. Dictation completed with the use of Q-Bot voice recognition software, prone to medical misidentifications and grammatical errors. All errors are unintentional. Although the practitioner does try to identify and correct errors, some may be present. Please do not hesitate to contact the practitioner for clarification. Total time was 30 minutes spent with >50% on coordination of care and patient education. 11/24/2024 Nutritional counseling (ICD-10 - Z71.3) Tim is a 44-year-old female with a PMH of thyroid dysfunction that presents for weight management follow up. Reviewed [facility] holistic and medical approach to weight loss with emphasis on lifestyle modification. 11/24/2024: Weight: 155.4, BMI: 23.6 (-7lbs) SECA reviewed, reveals primarily fat loss with minimal muscle mass loss. Patient encouraged to continue making health-conscious diet choices and prioritizing protein intake. Discussed importance of active lifestyle and adequate hydration. Plan to continue Zepbound 5 mg SC every 10 days. Consider transition to maintenance dosing at time of next follow-up. 10/11/2024: Weight: 162.7, BMI: 24.7 (-4lbs). 09/06/2024: Weight: 166.9, BMI: 25.4. (-21lbs) 07/20/2024: Weight: 187, BMI: 28.5. (-16lbs) 06/23/2024: Weight: 203.3, BMI: 30.9. All questions answered to the patient's satisfaction. Patient demonstrates understanding of diagnosis and treatments discussed. Follow-up in 4 weeks, sooner should any questions/concerns arise. Case discussed with collaborating physician Susi Green who has reviewed the assessment/plan. Chart, medications, labs, and vital signs reviewed. Dictation completed with the use of Q-Bot voice recognition software, prone to medical misidentifications and grammatical errors. All errors are unintentional. Although the practitioner does try to identify and correct errors, some may be present. Please do not hesitate to contact the practitioner for clarification. Total time was 30 minutes spent with >50% on coordination of care and patient education. 10/11/2024 Nutritional counseling (ICD-10 - Z71.3) Tim is a 44-year-old female with a PMH of thyroid dysfunction that presents for weight management follow up. Reviewed [facility] holistic and medical approach to weight loss with emphasis on lifestyle modification. 10/11/2024: Weight: 162.7, BMI: 24.7 (-4lbs). SECA reviewed, reveals primarily fat loss. Patient congratulated on continued progress. She is encouraged to continue making health-conscious diet choices and prioritizing protein intake. Discussed importance of maintaining active lifestyle and hydrating adequately. She will continue Zepbound 5 mg SC every 10 days and follow-up in 6 weeks. 09/06/2024: Weight: 166.9, BMI: 25.4. (-21lbs) 07/20/2024: Weight: 187, BMI: 28.5. (-16lbs) 06/23/2024: Weight: 203.3, BMI: 30.9. All questions answered to the patient's satisfaction. Patient demonstrates understanding of diagnosis and treatments discussed. Follow-up in 4 weeks, sooner should any questions/concerns arise. Case discussed with collaborating physician Susi Green who has reviewed the assessment/plan. Chart, medications, labs, and vital signs reviewed. Dictation completed with the use of Q-Bot voice recognition software, prone to medical misidentifications and grammatical errors. All errors are unintentional. Although the practitioner does try to identify and correct errors, some may be present. Please do not hesitate to contact the practitioner for clarification. Total time was 30 minutes spent with >50% on coordination of care and patient education. 07/20/2024 Nutritional counseling (ICD-10 - Z71.3) Tim is a 44-year-old female with a PMH of thyroid dysfunction that presents for weight management follow up. Reviewed [facility] holistic and medical approach to weight loss with emphasis on lifestyle modification. 07/20/2024: Weight: 187, BMI: 28.5. Patient down 16 pounds. SECA reviewed, reveals 12 pounds of fat loss and 1 pound muscle mass loss. Patient congratulated on progress. She is encouraged to continue making health-conscious diet to assist with prioritization of protein intake. She is also encouraged to continue hydrating adequately and exercising regularly. Discussed goal of adding strength training 2-3 times weekly. Patient will complete 8 weeks of Zepbound 2.5 mg SC weekly with plan to then increase to 5 mg SC weekly. Follow-up in 6 weeks. 06/23/2024: Weight: 203.3, BMI: 30.9. Reviewed SECA/goals for implementing sustainable lifestyle changes. Patient is encouraged to increase physical activity, goal 8-10k steps/day. Also discussed the importance of strength training with proper safety/body mechanics for maintenance of muscle mass/bone health. Patient encouraged to drink 60-80oz water/day. Reviewed nutrition, recommending food diary x 1 week to ensure adequate caloric/protein intake. Goal of 80-100g protein/day. Reviewed risks, benefits, and side effects of weight management medications including phentermine, Topamax, Contrave, metformin, and GLP-1 agonist. Patient interested in GLP-1/GIP agonist Zepbound. Denies personal/family history of medullary thyroid cancer/M EN syndrome. Rx for Zepbound 2.5 mg SC weekly sent to pharmacy. Reviewed proper use/administration, and expectations for PA process/insurance coverage. All questions answered to the patient's satisfaction. Patient demonstrates understanding of diagnosis and treatments discussed. Follow-up in 4 weeks, sooner should any questions/concerns arise. Case discussed with collaborating physician Susi Green who has reviewed the assessment/plan. Chart, medications, labs, and vital signs reviewed. Dictation completed with the use of Dragon voice recognition software, prone to medical misidentifications and grammatical errors. All errors are unintentional. Although the practitioner does try to identify and correct errors, some may be present. Please do not hesitate to contact the practitioner for clarification. Total time was 30 minutes spent with >50% on coordination of care and patient education. 07/20/2024 Encounter for examination of blood pressure without abnormal findings (ICD-10 - Z01.30) Tim is a 44-year-old female with a PMH of thyroid dysfunction that presents for weight management follow up. Reviewed [facility] holistic and medical approach to weight loss with emphasis on lifestyle modification. 07/20/2024: Weight: 187, BMI: 28.5. Patient down 16 pounds. SECA reviewed, reveals 12 pounds of fat loss and 1 pound muscle mass loss. Patient congratulated on progress. She is encouraged to continue making health-conscious diet to assist with prioritization of protein intake. She is also encouraged to continue hydrating adequately and exercising regularly. Discussed goal of adding strength training 2-3 times weekly. Patient will complete 8 weeks of Zepbound 2.5 mg SC weekly with plan to then increase to 5 mg SC weekly. Follow-up in 6 weeks. 06/23/2024: Weight: 203.3, BMI: 30.9. Reviewed SECA/goals for implementing sustainable lifestyle changes. Patient is encouraged to increase physical activity, goal 8-10k steps/day. Also discussed the importance of strength training with proper safety/body mechanics for maintenance of muscle mass/bone health. Patient encouraged to drink 60-80oz water/day. Reviewed nutrition, recommending food diary x 1 week to ensure adequate caloric/protein intake. Goal of 80-100g protein/day. Reviewed risks, benefits, and side effects of weight management medications including phentermine, Topamax, Contrave, metformin, and GLP-1 agonist. Patient interested in GLP-1/GIP agonist Zepbound. Denies personal/family history of medullary thyroid cancer/M EN syndrome. Rx for Zepbound 2.5 mg SC weekly sent to pharmacy. Reviewed proper use/administration, and expectations for PA process/insurance coverage. All questions answered to the patient's satisfaction. Patient demonstrates understanding of diagnosis and treatments discussed. Follow-up in 4 weeks, sooner should any questions/concerns arise. Case discussed with collaborating physician Susi Green who has reviewed the assessment/plan. Chart, medications, labs, and vital signs reviewed. Dictation completed with the use of Q-Bot voice recognition software, prone to medical misidentifications and grammatical errors. All errors are unintentional. Although the practitioner does try to identify and correct errors, some may be present. Please do not hesitate to contact the practitioner for clarification. Total time was 30 minutes spent with >50% on coordination of care and patient education. 10/11/2024 Encounter for examination of blood pressure without abnormal findings (ICD-10 - Z01.30) Tim is a 44-year-old female with a PMH of thyroid dysfunction that presents for weight management follow up. Reviewed [facility] holistic and medical approach to weight loss with emphasis on lifestyle modification. 10/11/2024: Weight: 162.7, BMI: 24.7 (-4lbs). SECA reviewed, reveals primarily fat loss. Patient congratulated on continued progress. She is encouraged to continue making health-conscious diet choices and prioritizing protein intake. Discussed importance of maintaining active lifestyle and hydrating adequately. She will continue Zepbound 5 mg SC every 10 days and follow-up in 6 weeks. 09/06/2024: Weight: 166.9, BMI: 25.4. (-21lbs) 07/20/2024: Weight: 187, BMI: 28.5. (-16lbs) 06/23/2024: Weight: 203.3, BMI: 30.9. All questions answered to the patient's satisfaction. Patient demonstrates understanding of diagnosis and treatments discussed. Follow-up in 4 weeks, sooner should any questions/concerns arise. Case discussed with collaborating physician Susi Green who has reviewed the assessment/plan. Chart, medications, labs, and vital signs reviewed. Dictation completed with the use of Q-Bot voice recognition software, prone to medical misidentifications and grammatical errors. All errors are unintentional. Although the practitioner does try to identify and correct errors, some may be present. Please do not hesitate to contact the practitioner for clarification. Total time was 30 minutes spent with >50% on coordination of care and patient education. 11/24/2024 Encounter for examination of blood pressure without abnormal findings (ICD-10 - Z01.30) iTm is a 44-year-old female with a PMH of thyroid dysfunction that presents for weight management follow up. Reviewed [facility] holistic and medical approach to weight loss with emphasis on lifestyle modification. 11/24/2024: Weight: 155.4, BMI: 23.6 (-7lbs) SECA reviewed, reveals primarily fat loss with minimal muscle mass loss. Patient encouraged to continue making health-conscious diet choices and prioritizing protein intake. Discussed importance of active lifestyle and adequate hydration. Plan to continue Zepbound 5 mg SC every 10 days. Consider transition to maintenance dosing at time of next follow-up. 10/11/2024: Weight: 162.7, BMI: 24.7 (-4lbs). 09/06/2024: Weight: 166.9, BMI: 25.4. (-21lbs) 07/20/2024: Weight: 187, BMI: 28.5. (-16lbs) 06/23/2024: Weight: 203.3, BMI: 30.9. All questions answered to the patient's satisfaction. Patient demonstrates understanding of diagnosis and treatments discussed. Follow-up in 4 weeks, sooner should any questions/concerns arise. Case discussed with collaborating physician Susi Green who has reviewed the assessment/plan. Chart, medications, labs, and vital signs reviewed. Dictation completed with the use of Q-Bot voice recognition software, prone to medical misidentifications and grammatical errors. All errors are unintentional. Although the practitioner does try to identify and correct errors, some may be present. Please do not hesitate to contact the practitioner for clarification. Total time was 30 minutes spent with >50% on coordination of care and patient education. 09/06/2024 Encounter for examination of blood pressure without abnormal findings (ICD-10 - Z01.30) Tim is a 44-year-old female with a PMH of thyroid dysfunction that presents for weight management follow up. Reviewed [facility] holistic and medical approach to weight loss with emphasis on lifestyle modification. 09/06/2024: Weight: 166.9, BMI: 25.4.(-21lbs) SECA reviewed, reveals 18 pounds of fat loss and 2 pounds of muscle mass loss. Patient averaging 3.4 pounds of weight loss/week. Discussed importance of continued prioritization of protein intake, adequate hydration, and regular physical activity. Patient will continue Zepbound 5 mg every 10-14 days and follow-up in 1 month. 07/20/2024: Weight: 187, BMI: 28.5. (-16lbs) 06/23/2024: Weight: 203.3, BMI: 30.9. All questions answered to the patient's satisfaction. Patient demonstrates understanding of diagnosis and treatments discussed. Follow-up in 4 weeks, sooner should any questions/concerns arise. Case discussed with collaborating physician Susi Green who has reviewed the assessment/plan. Chart, medications, labs, and vital signs reviewed. Dictation completed with the use of Q-Bot voice recognition software, prone to medical misidentifications and grammatical errors. All errors are unintentional. Although the practitioner does try to identify and correct errors, some may be present. Please do not hesitate to contact the practitioner for clarification. Total time was 30 minutes spent with >50% on coordination of care and patient education. Plan Of Treatment Next Appt Details Provider Name:VIOLETA BARAK Gordon, 01/05/2025 10:30:00 AM, [address] [place] [address], [phone], Insurance Providers Payer Name Payer Address Payer Phone Subscriber Number Group Number Insured Name Patient Relationship to Insured Coverage Start Date Coverage End Date [facility] [address] [place] [address] [id number] Tim ALVAREZ Self - patient is the insured Medical (General) History Medical History History ICD Code Obesity (BMI 30.0-34.9) E66.811 Thyroid dysfunction E07.9
--- OUTSIDE RECORDS SUMMARY | 2024-12-27 21:09 | XMS_ITS | Clinical Summary ---
Author Organization [facility] Address [address] [place] [address] Phone Care Team Providers Care Abrasive Coating Machine Operator Name Role Phone Wesly Orta Primary Care Provider [phone] Social History Tobacco Use Types Packs/Day Years Used Date Smoking Tobacco: Never Assessed Education Answer Date Recorded Are you interested in more education? Not on carlton e 01/21/2024 Are you concerned about learning? Not on file 01/21/2024 No 01/21/2024 No 01/21/2024 Digital Access Answer Date Recorded No 01/21/2024 No 01/21/2024 Reliable internet access at home? Not on file 01/21/2024 Device with a working camera? Not on file Comments Unknown Sex and Gender Information Value Date Recorded Sex Assigned at Not on file Legal Sex Female 2:59 PM EST Gender Identity Not on file Sexual Orientation Not on file Plan of Treatment Health Maintenance Due Date Last Done Comments Adult Td,Tdap Booster 1982 DEPRESSION SCREENING 1994 SMOKING Hx and SMOKELESS TOB ACCO SCREENING 06/27/1995 HEPATITIS C SCREENING 2000 HIV ONE-TIME SCREENING (18-6 5 YEARS) 2000 PAP SMEAR 06/27/2003 MAMMOGRAM 2022 INFLUENZA VACCINE (#1) 2024 COVID-19 VACCINE (2024-2 6 season) 2024 HEPATITIS A VACCINES Aged Out No long er eligible based on patient's age to complete this topic HIB VACCINES Aged Out No longer eligi ble based on patient's age to complete this topic MENINGOCOCCAL VACCINES (ACWY) Aged Out No longer eligible based on patient's age to complete this topic MENINGOCOCCAL VACCINES (B) Aged Out N o longer eligible based on patient's age to complete this topic PNEUMOCOCCAL VACCINES (0-49 years) Aged Out No longer eligible based on patient's age to complete this topic Medical Devices Not on file Insurance Care Teams Abrasive Coating Machine Operator Relationship Specialty Start Date End Date Wesly Orta PA [address] [place] [phone] PCP - General Physician Horseradish Grinder 01/14/24 Additional Source Comments The information contained in this document represents components of the legal health record. It is not the complete legal health record.[facility]
== END 2024-12-27 14:56 | disposition home or self-care (01) ==
LOC: HO.US 14:55
PROVIDERS: PCP Internal Medicine; Visit Provider Student in an Organized Health Care Education/Training Program
DX: E04.2 Nontoxic multinodular goiter (principal)
CPT/HCPCS: 76536

== ENCOUNTER → 2024-12-27 14:57 | Outpatient (BNV) | payer BC, SELFPAY | PROVIDERS: PCP Internal Medicine; Visit Provider Radiology Diagnostic Radiology | DX: E04.2 Nontoxic multinodular goiter (principal) | CPT/HCPCS: 76536 ==

== ENCOUNTER 2025-02-20 09:15 | Outpatient (REF) | payer BC, SELFPAY ==
--- OUTSIDE RECORDS SUMMARY | 2025-02-20 10:41 | XMS_ITS | Clinical Summary ---
Author Organization [facility] Address [address] [place] [address] Phone Care Team Providers Care Commissary Production Supervisor Name Role Phone Wesly Orta Primary Care Provider [phone] Social History Tobacco Use Types Packs/Day Years [...] Devices Not on file Insurance Care Teams Commissary Production Supervisor Relationship Specialty Start Date End Date Wesly Orta PA [address] [place] [phone] PCP - General Physician Reports Analysis Manager 01/14/24 Additional Source Comments The information contained in this document represents components of the legal health record. It is not the complete legal health record.[facility]
--- OUTSIDE RECORDS SUMMARY | 2025-02-20 10:41 | XMS_ITS | Patient Health Record ---
Author Organization [facility] Address [address] [place] [address] Care Team Providers Care Software Security Architect Name Role Phone Cesario Adamson MD Primary Care Provider Un available Sofia Josue Unavailable [phone] Reason For Referral No Information Problems Problem Type SNOMED Code ICD Code Onset Dates Problem Status W/U Status Risk Notes Problem Onychomycosis (197033420) Onychomycosis (110.1) Active confirmed Problem Pain in limb (38706095) Pain in Limb (729.5) Active confirmed Problem Hallux valgus (308461575) Hallux Valgus (735.0) Active confirmed Problem Hammer toe (194890295) Hammer toe (735.4) Active confirmed Plan Of Treatment No Information Insurance Providers Payer Name Payer Address Payer Phone Subscriber Number Group Number Insured Name Patient Relationship to Insured Coverage Start Date Coverage End Date [facility] [address] [place] [address] [id number] Tim Vigil Self - patient is the insured
--- OUTSIDE RECORDS SUMMARY | 2025-02-20 10:41 | XMS_ITS | Patient Health Record ---
Author Organization [facility] [address] Address [address] [place] [address] Care Team Providers Care Primary Special Education Teacher Name Role Phone KENAN THU Primary Care Provider VIOLETA Arrington Unavailable [phone] Allergies No Known Allergies Reason For Referral Diagnosis 1 Other general sympto ms and signs (R68.89) Referred Organization [facility] [address] Referred Provider JB TRUNER Referred Address [address] [facility] [address] ,[place], [place],[address], Referred Provider Specialty Weight Manag ement Referral Priority Routine Medications Medication SIG (Take, Route, Frequency, Duration) Notes Start Date End Date Status Zepbound 5 MG/0.5ML Solution Auto-injector Inject 5mg Subcutaneous once weekly; Duration: 30 days Active Mirena (52 MG) Activ e Social History Section Notes: Director of [facility] Tob: Denies Etoh: Social Drug: Denies Director of [facility] Tob: Denies Etoh: Social Drug: Denies Director of [facility] Tob: Denies Etoh: Social Drug: Denies Director of [facility] Tob: Denies Etoh: Social Drug: Denies Director of [facility] Tob: Denies Etoh: Social Drug: Denies Director of [facility] Tob: Denies Etoh: Social Drug: Denies Problems Problem Type SNOMED Code ICD Code Onset Dates Problem Status W/U Status Risk Notes Problem Overweight (218053440) Overweight (E66.3) Active confirmed Problem Body mass index 25-29 - overweight (414496295) BMI 28.0-28.9,adult (Z68.28) Active confirmed Problem Thyroid dysfunction (083633576) Thyroid dysfunction (E07.9) Active confirmed Vital Signs Heart Rate 87 /min 01/05/2025 Oximetry 97 % 01/05/2025 Blood pressure diastolic 74 mm Hg 01/05/2025 Height 68 in 01/05/2025 Blood pressure systolic 122 mm Hg 01/05/2025 Weight 152.8 lbs 01/05/2025 BMI 23.23 kg/m2 01/05/2025 Encounters Encounter Location Date Provider Diagnosis [facility] [address] 06/23/2024 VIOLETA CHANTALE Obesity (BMI 30.0-34.9) E66.811 ; BMI 30.0-30.9,adult Z68.30 ; Thyroid dysfunction E07.9 and Nutritional counseling Z71.3 [facility] [address] 07/20/2024 VIOLETA KENYON Overweight E66.3 ; B PR 28.0-28.9,adult Z68.28 ; Thyroid dysfunction E07.9 ; Nutritional counseling Z71.3 and Encounter for examination of blood pressure without abnormal findings Z01.30 [facility] [address] 09/06/2024 VIOLETA CHANTALE Overweight E66.3 ; B PR 25.0-25.9,adult Z68.25 ; Thyroid dysfunction E07.9 ; Nutritional counseling Z71.3 and Encounter for examination of blood pressure without abnormal findings Z01.30 [facility] [address] 10/11/2024 VIOLETA CHANTALE Overweight E66.3 ; B PR 24.0-24.9, adult Z68.24 ; Thyroid dysfunction E07.9 ; Nutritional counseling Z71.3 and Encounter for examination of blood pressure without abnormal findings Z01.30 [facility] [address] 11/24/2024 VIOLETA CHANTALE Overweight E66.3 ; B PR 23.0-23.9, adult Z68.23 ; Thyroid dysfunction E07.9 ; Nutritional counseling Z71.3 and Encounter for examination of blood pressure without abnormal findings Z01.30 [facility] [address] 01/05/2025 VIOLETA LOZANOHAM Overweight E66.3 ; B PR 23.0-23.9, adult Z68.23 ; Thyroid dysfunction E07.9 ; Nutritional counseling Z71.3 and Encounter for examination of blood pressure without abnormal findings Z01.[address] [facility] [address] [place] [address] 06/02/2024 VIOLETA LOZANOHAM [facility] [address] [place] [address] 06/23/2024 VIOLETA LOZANOHAM [facility] [address] [place] [address] 07/04/2024 VIOLETA CHANTALE [facility] [address] [place] [address] 07/04/2024 VIOLETA KENYON [facility] [address] [place] [address] 07/12/2024 VIOLETA LOZANOHAM [facility] [address] [place] [address] 07/18/2024 VIOLETA LOZANOHAM [facility] [address] [place] [address] 12/28/2024 VIOLETA KENYON Overweight E66.3 Assessments Encounter Date Diagnosis (ICD Code) Assessment Notes Treatment Notes Treatment Clinical Notes Section Notes 06/23/2024 BMI 30.0-30.9,adul t (ICD-10 - Z68.30) [...] reviewed. Dictation completed with the use of [employer] voice recognition software, prone to medical misidentifications [...] reviewed. Dictation completed with the use of [employer] voice recognition software, prone to medical misidentifications [...] reviewed. Dictation completed with the use of [employer] voice recognition software, prone to medical misidentifications [...] reviewed. Dictation completed with the use of [employer] voice recognition software, prone to medical misidentifications and grammatical errors. All errors are unintentional. Although the practitioner does try to identify and correct errors, some may be present. Please do not hesitate to contact the practitioner for clarification. Total time was 30 minutes spent with >50% on coordination of care and patient education. 10/11/2024 Overweight (ICD-10 - E66.3) Tim is [...] reviewed. Dictation completed with the use of [employer] voice recognition software, prone to medical misidentifications [...] reviewed. Dictation completed with the use of [employer] voice recognition software, prone to medical misidentifications [...] reviewed. Dictation completed with the use of [employer] voice recognition software, prone to medical misidentifications [...] reviewed. Dictation completed with the use of [employer] voice recognition software, prone to medical misidentifications and grammatical errors. All errors are unintentional. Although the practitioner does try to identify and correct errors, some may be present. Please do not hesitate to contact the practitioner for clarification. Total time was 30 minutes spent with >50% on coordination of care and patient education. 01/05/2025 Overweight (ICD-10 - E66.3) Tim is a 44-year-old female with a PMH of thyroid dysfunction that presents for weight management follow up. Reviewed [facility] holistic and medical approach to weight loss with emphasis on lifestyle modification. 01/05/2025: Weight: 152.8, BMI: 23.2 SECA reviewed, reveals fat loss and muscle mass gain. Body composition has been optimized. Patient encouraged to continue making health-conscious diet choices and prioritizing protein intake. Discussed importance of adequate hydration and continued active lifestyle. She will continue Zepbound 5 mg every other week with goal of maintenance. Follow-up 6 to 8 weeks. 11/24/2024: Weight: 155.4, BMI: 23.6 (-7lbs) 10/11/2024: Weight: 162.7, BMI: 24.7 (-4lbs). 09/06/2024: [...] reviewed. Dictation completed with the use of [employer] voice recognition software, prone to medical misidentifications and grammatical errors. All errors are unintentional. Although the practitioner does try to identify and correct errors, some may be present. Please do not hesitate to contact the practitioner for clarification. Total time was 30 minutes spent with >50% on coordination of care and patient education. 01/05/2025 BMI 23.0-23.9, adult (ICD-10 - Z68.23) Tim is a 44-year-old female with a PMH of thyroid dysfunction that presents for weight management follow up. Reviewed [facility] holistic and medical approach to weight loss with emphasis on lifestyle modification. 01/05/2025: Weight: 152.8, BMI: 23.2 SECA reviewed, reveals fat loss and muscle mass gain. Body composition has been optimized. Patient encouraged to continue making health-conscious diet choices and prioritizing protein intake. Discussed importance of adequate hydration and continued active lifestyle. She will continue Zepbound 5 mg every other week with goal of maintenance. Follow-up 6 to 8 weeks. 11/24/2024: Weight: 155.4, BMI: 23.6 (-7lbs) 10/11/2024: Weight: 162.7, BMI: 24.7 (-4lbs). 09/06/2024: [...] reviewed. Dictation completed with the use of [employer] voice recognition software, prone to medical misidentifications [...] reviewed. Dictation completed with the use of [employer] voice recognition software, prone to medical misidentifications [...] reviewed. Dictation completed with the use of [employer] voice recognition software, prone to medical misidentifications and grammatical errors. All errors are unintentional. Although the practitioner does try to identify and correct errors, some may be present. Please do not hesitate to contact the practitioner for clarification. Total time was 30 minutes spent with >50% on coordination of care and patient education. 12/28/2024 Overweight (ICD-10 - E66.3) Electronic Prior Authorization was requested for Zepbound 5 MG/0.5ML Solution Auto-injector. Provider can order medication once approval received. 07/20/2024 Thyroid dysfunction (ICD-10 - E07.9) Tim [...] reviewed. Dictation completed with the use of [employer] voice recognition software, prone to medical misidentifications [...] reviewed. Dictation completed with the use of [employer] voice recognition software, prone to medical misidentifications [...] reviewed. Dictation completed with the use of [employer] voice recognition software, prone to medical misidentifications [...] reviewed. Dictation completed with the use of [employer] voice recognition software, prone to medical misidentifications [...] reviewed. Dictation completed with the use of [employer] voice recognition software, prone to medical misidentifications [...] reviewed. Dictation completed with the use of [employer] voice recognition software, prone to medical misidentifications [...] reviewed. Dictation completed with the use of [employer] voice recognition software, prone to medical misidentifications and grammatical errors. All errors are unintentional. Although the practitioner does try to identify and correct errors, some may be present. Please do not hesitate to contact the practitioner for clarification. Total time was 30 minutes spent with >50% on coordination of care and patient education. 01/05/2025 Thyroid dysfunction (ICD-10 - E07.9) Tim is a 44-year-old female with a PMH of thyroid dysfunction that presents for weight management follow up. Reviewed [facility] holistic and medical approach to weight loss with emphasis on lifestyle modification. 01/05/2025: Weight: 152.8, BMI: 23.2 SECA reviewed, reveals fat loss and muscle mass gain. Body composition has been optimized. Patient encouraged to continue making health-conscious diet choices and prioritizing protein intake. Discussed importance of adequate hydration and continued active lifestyle. She will continue Zepbound 5 mg every other week with goal of maintenance. Follow-up 6 to 8 weeks. 11/24/2024: Weight: 155.4, BMI: 23.6 (-7lbs) 10/11/2024: Weight: 162.7, BMI: 24.7 (-4lbs). 09/06/2024: [...] reviewed. Dictation completed with the use of [employer] voice recognition software, prone to medical misidentifications and grammatical errors. All errors are unintentional. Although the practitioner does try to identify and correct errors, some may be present. Please do not hesitate to contact the practitioner for clarification. Total time was 30 minutes spent with >50% on coordination of care and patient education. 01/05/2025 Nutritional counseling (ICD-10 - Z71.3) Tim is a 44-year-old female with a PMH of thyroid dysfunction that presents for weight management follow up. Reviewed [facility] holistic and medical approach to weight loss with emphasis on lifestyle modification. 01/05/2025: Weight: 152.8, BMI: 23.2 SECA reviewed, reveals fat loss and muscle mass gain. Body composition has been optimized. Patient encouraged to continue making health-conscious diet choices and prioritizing protein intake. Discussed importance of adequate hydration and continued active lifestyle. She will continue Zepbound 5 mg every other week with goal of maintenance. Follow-up 6 to 8 weeks. 11/24/2024: Weight: 155.4, BMI: 23.6 (-7lbs) 10/11/2024: Weight: 162.7, BMI: 24.7 (-4lbs). 09/06/2024: [...] reviewed. Dictation completed with the use of [employer] voice recognition software, prone to medical misidentifications [...] reviewed. Dictation completed with the use of [employer] voice recognition software, prone to medical misidentifications [...] reviewed. Dictation completed with the use of [employer] voice recognition software, prone to medical misidentifications [...] reviewed. Dictation completed with the use of [employer] voice recognition software, prone to medical misidentifications [...] reviewed. Dictation completed with the use of [employer] voice recognition software, prone to medical misidentifications and grammatical errors. All errors are unintentional. Although the practitioner does try to identify and correct errors, some may be present. Please do not hesitate to contact the practitioner for clarification. Total time was 30 minutes spent with >50% on coordination of care and patient education. 01/05/2025 Encounter for examination of blood pressure without abnormal findings (ICD-10 - Z01.30) Tim is a 44-year-old female with a PMH of thyroid dysfunction that presents for weight management follow up. Reviewed [facility] holistic and medical approach to weight loss with emphasis on lifestyle modification. 01/05/2025: Weight: 152.8, BMI: 23.2 SECA reviewed, reveals fat loss and muscle mass gain. Body composition has been optimized. Patient encouraged to continue making health-conscious diet choices and prioritizing protein intake. Discussed importance of adequate hydration and continued active lifestyle. She will continue Zepbound 5 mg every other week with goal of maintenance. Follow-up 6 to 8 weeks. 11/24/2024: Weight: 155.4, BMI: 23.6 (-7lbs) 10/11/2024: Weight: 162.7, BMI: 24.7 (-4lbs). 09/06/2024: [...] reviewed. Dictation completed with the use of [employer] voice recognition software, prone to medical misidentifications and grammatical errors. All errors are unintentional. Although the practitioner does try to identify and correct errors, some may be present. Please do not hesitate to contact the practitioner for clarification. Total time was 30 minutes spent with >50% on coordination of care and patient education. Plan Of Treatment Next Appt Details Provider Name:VIOLETA Gordon, 02/22/2025 02:30:00 PM, [address] [facility] [address], [place], [address], Insurance Providers Payer Name Payer Address Payer Phone Subscriber Number Group Number Insured Name Patient Relationship to Insured Coverage Start Date Coverage End Date [facility] [address] [place] [address] [id number] Tim ALVAREZ Self - patient is the insured Medical (General) History Medical History History ICD Code Obesity (BMI 30.0-34.9) E66.811 Thyroid dysfunction E07.9
[2025-02-20 11:10] LABS: Free T4 (Free Thyroxine) 1.07 ng/dL (0.71-1.85); Thyroid Stimulating Hormone 0.35 uIU/mL (0.32-4.0)
== END 2025-02-20 09:16 | disposition home or self-care (01) ==
LOC: HO.LAB 09:15
PROVIDERS: Visit Provider Student in an Organized Health Care Education/Training Program
DX: E05.20 Thyrotoxicosis with toxic multinodular goiter without thyrotoxic crisis or storm (principal)
CPT/HCPCS: 36415; 84439; 84443; 84480